=== PATIENT | female | born 1990 | race Caucasian/White ===

== ENCOUNTER 2018-11-06 16:10 | Inpatient (IN) | payer OTHER ==
[~2018-11-06] VITALS: Ht 165.1 cm; Wt 111.6 kg
[2018-11-06 16:34] LABS: BILIRUBIN,URINE NEGATIVE (NEG); CLARITY,URINE CLEAR; COLOR,URINE YELLOW; NITRITE,URINE NEGATIVE (NEG); PROTEIN,URINE NEGATIVE (NEG-TRACE); UROBILINOGEN,URINE 0.2 mg/dL (0.2 mg/dL)
[2018-11-06 16:40] LABS: RBC,URINE >40 /HPF (0-2)
[2018-11-06 16:41] LABS: BACTERIA,URINE 0 /HPF (0-FEW); SQUAMOUS EPITHELIAL CELL,UR MOD /LPF; WBC,URINE OCC /HPF (0-4)
[2018-11-06 16:45] LABS: BASO # 0.1 x10^3/uL (0.0-0.2); BASO % 1 % (0-3); EOS % 0 % (0-3); HEMATOCRIT 40.2 % (36.0-47.0); HEMOGLOBIN 13.3 g/dL (12.0-15.5); LYMPH # 2.1 x10^3/uL (1.0-4.8); LYMPH % 26 % (24-48); MEAN CORPUSCULAR HEMOGLOBIN 28 pg (25-35); MEAN CORPUSCULAR HGB CONC 33 g/dL (31-37); MEAN CORPUSCULAR VOLUME 83 fL (79-100); MONO # 1.1 x10^3/uL (0.0-1.1); MONO % 14 % (0-9); NEUT # 4.7 x10^3uL (1.8-7.7); NEUT % 59 % (31-73); PLATELET COUNT 204 x10^3/uL (140-400); RED BLOOD COUNT 4.82 x10^6/uL (3.50-5.40); RED CELL DISTRIBUTION WIDTH 14.4 % (11.5-14.5); WHITE BLOOD COUNT 8.1 x10^3/uL (4.0-11.0)
[2018-11-06 16:53] LABS: CALCIUM 9.2 mg/dL (8.5-10.1); CREATININE 0.7 mg/dL (0.6-1.0); GFR 99.6; POTASSIUM 3.6 mmol/L (3.5-5.1)
[2018-11-06 17:00] LABS: BARBITURATES NEG (NEG); BENZODIAZEPINES NEG (NEG); CANNABINOIDS POS (NEG); COCAINE NEG (NEG); METHADONE NEG (NEG); OPIATES NEG (NEG); PHENCYCLIDINE NEG (NEG)
[2018-11-06] MEDS ORDERED: MORPHINE SULFATE 2 MG/ML VIAL. IV ONE (17:00)
[2018-11-06] MEDS ORDERED: IV NORMAL SALINE 1000ML BAG 1,000 ML IV ONE ×2 (17:00→19:15)
[2018-11-06 17:01] LABS: AMPHETAMINE/METHAMPHETAMINE NEG (NEG)
[2018-11-06] MEDS ORDERED: METHOTREXATE SODIUM 50 MG/2 ML VIAL IM ONE (18:30)
--- NOTE | 2018-11-06 19:02 | PHYS DOC ---
Past Medical History Past Medical History: No Pertinent History (CIERRA DODD APRN) Past Surgical History: No Surgical History (CIERRA DODD APRN) Alcohol Use: None Drug Use: None Social History Narrative: FORMER MARIJ[employer]NA (CIERRA DODD APRN) Adult General Chief Complaint Chief Complaint: ABDOMINAL PAIN IN HPI HPI Patient is a 27 year old female 6 para 2 currently 3 weeks who presents to the ED today stating she was seen at an outpatient clinic at the [place], she states they did an outpatient ultrasound which showed she has an ectopic . She states she's had mild to moderate lower abdominal pain for 1 week with vaginal bleeding. She states the vaginal bleeding is light. Patient denies any nausea, vomiting. Patient states she is undergoing fertility treatments. She states she is currently on progesterone. (CIERRA DODD APRN) Review of Systems Review of Systems Constitutional: Denies fever or chills [] Eyes: Denies change in visual acuity, redness, or eye pain [] HENT: Denies nasal congestion or sore throat [] Respiratory: Denies cough or shortness of breath [] Cardiovascular: No additional information not addressed in HPI [] GI: Reports minimal pain, vaginal bleeding in , denies nausea, vomiting, bloody stools or diarrhea [] : Denies dysuria or hematuria [] Musculoskeletal: Denies back pain or joint pain [] Integument: Denies rash or skin lesions [] Neurologic: Denies headache, focal weakness or sensory changes [] All other systems were reviewed and found to be within normal limits, except as documented in this note. (CIERRA DODD APRN) Current Medications Current Medications Current Medications Medications (Trade) Dose Ordered Sig/Chaparrita Start Time Stop Time Status Last Admin Dose Admin Morphine Sulfate (Morphine Sulfate) 2 mg 1X ONCE 11/06/18 17:00 11/06/18 17:01 DC Sodium Chloride 1,000 ml @ 1,000 mls/hr 1X ONCE 11/06/18 17:00 11/06/18 17:59 DC 11/06/18 16:54 1,000 MLS/HR (TATO FLORENTINO DO) Allergies Allergies Allergies Coded Allergies Type Severity Reaction Last Updated Verified No Known Drug Allergies 11/06/18 No (TATO FLORENTINO DO) Physical Exam Physical Exam Constitutional: Well developed, well nourished, no acute distress, non-toxic appearance. [] HENT: Normocephalic, atraumatic, bilateral external ears normal, oropharynx moist, no oral exudates, nose normal. [] Eyes: PERRLA, EOMI, conjunctiva normal, no discharge. [] Neck: Normal range of motion, no tenderness, supple, no stridor. [] Cardiovascular:Heart rate regular rhythm, no murmur [] Lungs & Thorax: Bilateral breath sounds clear to auscultation [] Abdomen: Bowel sounds normal, soft, no tenderness, no masses, no pulsatile masses. [] Pelvic exam External pelvic appears normal, cervix not visualized due to blood in the vaginal vault, no CMT, no adnexal tenderness, mild amount of blood pressure vault. Skin: Warm, dry, no erythema, no rash. [] Back: No tenderness, no CVA tenderness. [] Extremities: No tenderness, no cyanosis, no clubbing, ROM intact, no edema. [] Neurologic: Alert and oriented X 3, normal motor function, normal sensory function, no focal deficits noted. [] Psychologic: Affect normal, judgement normal, mood normal. [] (CIERRA DODD APRN) Current Patient Data Vital Signs Vital Signs Date Time Temp Pulse Resp B/P (MAP) Pulse Ox O2 Delivery O2 Flow Rate FiO2 11/06/18 18:00 90 14 122/69 (86) 95 Room Air 11/06/18 16:21 98.3 98.3 (FLORENTINOTATO R DO) Lab Values Laboratory Tests Test 11/06/18 16:25 11/06/18 16:28 11/06/18 16:31 Urine Collection Type Unknown Urine Color Yellow Urine Clarity Clear Urine pH 6.0 Urine Specific [place] <=1.005 Urine Protein Negative mg/dL (NEG-TRACE) Urine Glucose (UA) Negative mg/dL (NEG) Urine Ketones (Stick) 15 mg/dL (NEG) Urine Blood Large (NEG) Urine Nitrite Negative (NEG) Urine Bilirubin Negative (NEG) Urine Urobilinogen Dipstick 0.2 mg/dL (0.2 mg/dL) Urine Leukocyte Esterase Trace (NEG) Urine RBC >40 /HPF (0-2) Urine WBC Occ /HPF (0-4) Urine Squamous Epithelial Cells Mod /LPF Urine Bacteria 0 /HPF (0-FEW) Urine Mucus Slight /LPF Urine Opiates Screen Neg (NEG) Urine Methadone Screen Neg (NEG) Urine Barbiturates Neg (NEG) Urine Phencyclidine Screen Neg (NEG) Urine Amphetamine/Methamphetamine Neg (NEG) Urine Benzodiazepines Screen Neg (NEG) Urine Cocaine Screen Neg (NEG) Urine Cannabinoids Screen Pos (NEG) Urine Ethyl Alcohol Neg (NEG) POC Urine HCG, Qualitative Hcg positive (Negative) White Blood Count 8.1 x10^3/uL (4.0-11.0) Red Blood Count 4.82 x10^6/uL (3.50-5.40) Hemoglobin 13.3 g/dL (12.0-15.5) Hematocrit 40.2 % (36.0-47.0) Mean Corpuscular Volume 83 fL (79-100) Mean Corpuscular Hemoglobin 28 pg (25-35) Mean Corpuscular Hemoglobin Concent 33 g/dL (31-37) Red Cell Distribution Width 14.4 % (11.5-14.5) Platelet Count 204 x10^3/uL (140-400) Neutrophils (%) (Auto) 59 % (31-73) Lymphocytes (%) (Auto) 26 % (24-48) Monocytes (%) (Auto) 14 % (0-9) H Eosinophils (%) (Auto) 0 % (0-3) Basophils (%) (Auto) 1 % (0-3) Neutrophils # (Auto) 4.7 x10^3uL (1.8-7.7) Lymphocytes # (Auto) 2.1 x10^3/uL (1.0-4.8) Monocytes # (Auto) 1.1 x10^3/uL (0.0-1.1) Eosinophils # (Auto) 0.0 x10^3/uL (0.0-0.7) Basophils # (Auto) 0.1 x10^3/uL (0.0-0.2) Maternal Serum HCG Beta Subunit 4243 mIU/mL (0-5) H Sodium Level 140 mmol/L (136-145) Potassium Level 3.6 mmol/L (3.5-5.1) Chloride Level 103 mmol/L (98-107) Carbon Dioxide Level 25 mmol/L (21-32) Anion Gap 12 (6-14) Blood Urea Nitrogen 4 mg/dL (7-20) L Creatinine 0.7 mg/dL (0.6-1.0) Estimated GFR (Cockcroft-Gault) 99.6 Glucose Level 87 mg/dL (70-99) Calcium Level 9.2 mg/dL (8.5-10.1) Ethyl Alcohol Level < 10 mg/dL (0-10) Laboratory Tests 11/06/18 16:31 Laboratory Tests 11/06/18 16:31 (TATO FLORENTINO DO) EKG EKG [] (CIERRA DODD APRN) Radiology/Procedures Radiology/Procedures [] (CIERRA DODD APRN) Course & Med Decision Making Course & Med Decision Making Pertinent Labs and Imaging studies reviewed. (See chart for details) This is a 27-year-old female patient 6 para 2 currently 3 weeks presenting to the ED today for ectopic diagnosed as an outpatient ultrasound. Images from patient's OB ultrasound noted for endometrial thickening of 1.4 cm with no evidence of IUP. Complex mass in the right pelvic adnexal raising the suspicion of an ectopic . Beta-hCG 4243 Hemoglobin and hematocrit are normal. Blood group O+. Spoke with Dr. Jean, he stated we can offer patient to choices, 1. Surgery which is a risk of losing the tube and ovary or she can do methotrexate. Patient opted for methotrexate. She was admitted under Dr. Keys. (CIERRA DODD APRN) Dragon Disclaimer Dragon Disclaimer This electronic medical record was generated, in whole or in part, using a voice recognition dictation system. (CIERRA DODD APRN) Departure Departure Impression: Primary Impression: Ectopic Disposition: ADMITTED INPATIENT Condition: STABLE Referrals: NO PCP (PCP) Attending Signature Attending Signature I have reviewed the PA/DISTRICT ADMINISTRATIVE ASSISTANT's note and plan of care. I was available for consultation as needed during the patient's visit in the emergency department. I agree with the clinical impression, plan, and disposition. (TATO FLORENTINO DO) Problem Qualifiers Primary Impression: Ectopic Location of ectopic : ovarian Intrauterine status: without intrauterine Laterality: left Qualified Codes: O00.202 - Left ovarian without intrauterine CIERRA DODD APRN November 06, 2018 19:02 TATO FLORENTINO DO November 07, 2018 11:54
[2018-11-06] MEDS ORDERED: ACETAMINOPHEN 325 MG TABLET. PO PRN (19:15)
[2018-11-06] MEDS ORDERED: ONDANSETRON PF 4 MG/2 ML VIAL. IV PRN (19:15)
[2018-11-06] MEDS ORDERED: MORPHINE SULFATE 4 MG/ML VIAL. IV PRN (19:15)
[2018-11-06] MEDS ORDERED: ACETAMINOPHEN 500 MG TABLET PO ONE (20:15)
[2018-11-06 20:45] VITALS: BP 129/67
[2018-11-06 23:04] VITALS: BP 105/67
[2018-11-07 05:11] LABS: BASO % 0 % (0-3); EOS # 0.1 x10^3/uL (0.0-0.7); EOS % 1 % (0-3); HEMATOCRIT 35.2 % (36.0-47.0); HEMOGLOBIN 11.7 g/dL (12.0-15.5); LYMPH # 2.5 x10^3/uL (1.0-4.8); LYMPH % 37 % (24-48); MEAN CORPUSCULAR HEMOGLOBIN 28 pg (25-35); MEAN CORPUSCULAR HGB CONC 33 g/dL (31-37); MEAN CORPUSCULAR VOLUME 84 fL (79-100); MONO # 0.8 x10^3/uL (0.0-1.1); MONO % 11 % (0-9); NEUT # 3.5 x10^3uL (1.8-7.7); NEUT % 51 % (31-73); PLATELET COUNT 176 x10^3/uL (140-400); RED BLOOD COUNT 4.18 x10^6/uL (3.50-5.40); RED CELL DISTRIBUTION WIDTH 14.5 % (11.5-14.5); WHITE BLOOD COUNT 6.9 x10^3/uL (4.0-11.0)
[2018-11-07 06:17] VITALS: BP 136/72
[2018-11-07 11:22] VITALS: BP 112/71
[2018-11-07] MEDS ORDERED: HYDROmorphone 2 MG/ML VIAL IV PRN ×2 (13:30→14:00)
[2018-11-07] MEDS ORDERED: fentaNYL PF VIAL 100 MCG/2 ML VIAL IV PRN ×4 (13:30→14:00)
[2018-11-07] MEDS ORDERED: PROCHLORPERAZINE 10 MG/2 ML VIAL. IV PRN ×2 (13:30→14:00)
[2018-11-07] MEDS ORDERED: ONDANSETRON PF 4 MG/2 ML VIAL. IV PRN ×2 (13:30→14:00)
[2018-11-07] MEDS ORDERED: LIDOCAINE 1% PF 2 ML VIAL. ID PRN ×2 (13:30→14:00)
[2018-11-07] MEDS ORDERED: MORPHINE SULFATE 2 MG/ML VIAL. IV PRN ×2 (13:30→14:00)
[2018-11-07] MEDS ORDERED: IV RINGERS,LACTATED 1000ML 1,000 ML IV SCH ×2 (13:55→14:00)
[2018-11-07] MEDS ORDERED: IV NORMAL SALINE 1000ML BAG 1,000 ML IV SCH (14:00)
--- NOTE | 2018-11-07 15:28 | RAD ---
Limited OB ultrasound dated 11/07/2018. Comparison made to 11/06/2018. CLINICAL INDICATION: Follow-up right adnexal mass. Possible ectopic . Elevated beta hCG. Recent methotrexate administration. FINDINGS: Transabdominal and transvaginal imaging was performed. Uterus measures 10.5 x 5.5 x 5.4 cm. No focal uterine mass. Endometrial complex measures 7 mm thickness. No gestational sac or pole within the endometrial canal. Again noted is a heterogeneous mass at the right adnexa measures approximately 6.0 x 5.3 x 3.5 cm versus 6.2 x 3.6 x 5.8 cm previously. This shows prominent peripheral color flow. Small amount of simple appearing free fluid in the posterior cul-de-sac. Left ovary measures 1.9 x 2.6 x 3.1 cm. No left adnexal mass. IMPRESSION: 1. No significant interval change in complex right adnexal mass, presumably a tubal ectopic. Continued follow-up imaging to ensure resolution. 2. Small amount of free fluid, nonspecific. 3. No evidence of gestational sac or pole within the endometrial canal. Electronically signed by: Hardeep Durham MD (11/07/2018 3:26 PM) [id number]
[2018-11-07 18:24] VITALS: BP 135/94
--- NOTE | 2018-11-08 09:00 | PDOC ---
Provider Note Provider Note Late Entry 11/07/18 Pt feeling much better this AM min vag bleeding discussed MTX vs Surgery pt reiterated not wanting surgery unless absolutely necessary Will repeat U/S and if no changes and pt continues to be pain free will DC home with instructions PATTI LESTER MD November 08, 2018 09:00
--- NOTE | 2018-11-08 09:04 | PDOC3 ---
OB DISCHARGE SUMMARY DATE OF ADMISSION: 11/07/18 DATE OF DISCHARGE: 11/08/18 REASON FOR ADMISSION: Observation/evaluation, Vaginal bleeding, Other (ectopic) PROCEDURES: Ultrasound PROCEDURES: None OPERATIONS: None PROBLEM LIST AT DISCHARGE Problems Medical Problems: (1) Ectopic Status: Acute DISCHARGE DIAGNOSIS: Others (eEctopic tx with MTX) DISCHARGE INFORMATION: Activity, Diet HOSPITAL COURSE Unremarkable CONDITION AT DISCHARGE Stable PATTI LESTER MD November 08, 2018 09:04
--- NOTE | 2018-11-08 10:08 | HP ---
ADMIT DATE: 11/06/2018 CHIEF COMPLAINT: Pelvic pain. HISTORY OF PRESENT ILLNESS: This is a very pleasant female, 27 years old, 6, para 2, felt she was approximately 3-4 weeks , presented to the ER after being seen in the outpatient clinic in the [place] and it was noted to have by ultrasound, probable ectopic . The patient stated that she was undergoing fertility treatments at the facility and was very concerned that this could be ectopic and surgery would be only indicated if necessary secondary to her ability to continue the fertility treatments. The patient is also on progesterone to help maintain the . REVIEW OF SYSTEMS: Per ER note. ALLERGIES: No known drug allergies. PHYSICAL EXAMINATION: HEENT: Head normocephalic, atraumatic. Pupils equal, round, reactive to light. HEART: Regular rate and rhythm. ABDOMEN: Soft, nontender to palpation. PELVIC: Showed no cervical motion tenderness per the ER, minimal blood in the vault. EXTREMITIES: No clubbing, cyanosis or edema. NEUROLOGIC: Intact. IMPRESSION AND PLAN: Complex mass in the right adnexa, suspicious for ectopic , the size was borderline and treating with methotrexate secondary to the patient's wishes. Attempt to resolve the via methotrexate will be prescribed. The patient will be admitted and follow up on pain and bleeding in the a.m. PATTI LESTER MD DR: LUIS CARLOS/gareth JOB#: [id number] / [id number]
== END 2018-11-07 18:30 | disposition home or self-care (01) | DRG 833 ==
LOC: ER 16:10 → 3 NORTH 18:28
PROVIDERS: ADMIT Specialist; ATTEND Specialist
DX: O00.90 Unspecified ectopic pregnancy without intrauterine pregnancy (principal); Z3A.01 Less than 8 weeks gestation of pregnancy
CPT/HCPCS: 36415; 76801; 76817; 80048; 80307; 81001; 81025; 84702; 85025; 86850; 86900; 86901; 87086; 96360; 96361; 96372; G0480; J7030; 99285-25

== ENCOUNTER 2018-11-07 21:30 | Inpatient (IN) | payer OTHER ==
[~2018-11-07] VITALS: Ht 172.7 cm; Wt 111.6 kg
[2018-11-07] MEDS ORDERED: fentaNYL PF VIAL 100 MCG/2 ML VIAL IV ONE ×2 (22:00→23:00)
[2018-11-07] MEDS ORDERED: IV NORMAL SALINE 1000ML BAG 1,000 ML IV ONE ×2 (22:00→23:00)
[2018-11-07] MEDS ORDERED: ONDANSETRON PF 4 MG/2 ML VIAL. IV ONE (22:00)
--- NOTE | 2018-11-07 22:21 | PHYS DOC ---
Past Medical History Past Medical History: No Pertinent History, Other Additional Past Medical Histor: ectopic preg (ALEXA WEBB) Past Surgical History: No Surgical History (ALEXA WEBB) Alcohol Use: None Drug Use: None (ALEXA WEBB) Adult General Chief Complaint Chief Complaint: ABDOMINAL PAIN HPI HPI Patient is a 27 year old F who was admitted on 11/06/[address] Keys for an ectopic and treated with Methotrexate. She was discharged home late this afternoon, 11/07/18. Pt states she went home and passed some blood clots and then started having increased pain in mid and lower R abdomen. She comes back to ER tearful and pale. Call placed immediately to Dr. Keys who would like us to repeat ultrasound to make sure she doesn't have a belly full of blood. If she does, we will call him back for her to go to surgery tonight. If ectopic is stable, we will admit to him with pain control, NPO after midnight and plans for surgery tomorrow. (ALEXA WEBB) Review of Systems Review of Systems Constitutional: Denies fever or chills Respiratory: Denies cough or shortness of breath Cardiovascular: Denies chest pain. GI: Denies nausea, vomiting, bloody stools or diarrhea. Reports low and RLQ abd pain. : Reports vaginal bleeding. Musculoskeletal: Denies back pain or joint pain Integument: Denies rash or skin lesions Neurologic: Denies headache, focal weakness or sensory changes All other systems were reviewed and found to be within normal limits, except as documented in this note. (ALEXA WEBB) Current Medications Current Medications Current Medications Medications (Trade) Dose Ordered Sig/Chaparrita Start Time Stop Time Status Last Admin Dose Admin Fentanyl Citrate (Fentanyl 2ml Vial) 25 mcg 1X ONCE 11/07/18 22:00 11/07/18 22:02 DC 11/07/18 22:21 25 MCG Ondansetron HCl (Zofran) 4 mg 1X ONCE 11/07/18 22:00 11/07/18 22:02 DC 11/07/18 22:21 4 MG Sodium Chloride 1,000 ml @ 1,000 mls/hr 1X ONCE 11/07/18 22:00 11/07/18 22:59 DC 11/07/18 22:21 1,000 MLS/HR (TATO FLORENTINO DO) Allergies Allergies Allergies Coded Allergies Type Severity Reaction Last Updated Verified No Known Drug Allergies 11/06/18 No (TATO FLORENTINO DO) Physical Exam Physical Exam Constitutional: Well developed, well nourished. Uncomfortable. Neck: Normal range of motion, no tenderness, supple, no stridor. Cardiovascular:Heart rate regular rhythm, no murmur Lungs & Thorax: Bilateral breath sounds clear to auscultation Abdomen: Bowel sounds normal, soft, no masses, no pulsatile masses. Suprapubic pain and R low pelvis pain. Skin: Warm, dry, no erythema, no rash. Back: No tenderness, no CVA tenderness. Extremities: No tenderness, no cyanosis, no clubbing, ROM intact, no edema. Neurologic: Alert and oriented X 3, normal motor function, normal sensory function, no focal deficits noted. Psychologic: Affect normal, judgement normal, mood normal. (ALEXA WEBB) Current Patient Data Vital Signs Vital Signs Date Time Temp Pulse Resp B/P (MAP) Pulse Ox O2 Delivery O2 Flow Rate FiO2 11/07/18 22:46 78 18 111/55 (73) 96 Room Air 11/07/18 21:45 98.0 98.0 (TATO FLORENTINO DO) Lab Values Laboratory Tests Test 11/07/18 22:15 White Blood Count 9.5 x10^3/uL (4.0-11.0) Red Blood Count 4.17 x10^6/uL (3.50-5.40) Hemoglobin 11.8 g/dL (12.0-15.5) L Hematocrit 35.1 % (36.0-47.0) L Mean Corpuscular Volume 84 fL (79-100) Mean Corpuscular Hemoglobin 28 pg (25-35) Mean Corpuscular Hemoglobin Concent 34 g/dL (31-37) Red Cell Distribution Width 14.2 % (11.5-14.5) Platelet Count 177 x10^3/uL (140-400) Neutrophils (%) (Auto) 71 % (31-73) Lymphocytes (%) (Auto) 20 % (24-48) L Monocytes (%) (Auto) 9 % (0-9) Eosinophils (%) (Auto) 0 % (0-3) Basophils (%) (Auto) 1 % (0-3) Neutrophils # (Auto) 6.7 x10^3uL (1.8-7.7) Lymphocytes # (Auto) 1.8 x10^3/uL (1.0-4.8) Monocytes # (Auto) 0.8 x10^3/uL (0.0-1.1) Eosinophils # (Auto) 0.0 x10^3/uL (0.0-0.7) Basophils # (Auto) 0.1 x10^3/uL (0.0-0.2) Prothrombin Time 13.1 SEC (11.7-14.0) Prothrombin Time INR 1.0 (0.8-1.1) PTT 27 SEC (24-38) Maternal Serum HCG Beta Subunit 3760 mIU/mL (0-5) H Sodium Level 140 mmol/L (136-145) Potassium Level 3.8 mmol/L (3.5-5.1) Chloride Level 105 mmol/L (98-107) Carbon Dioxide Level 23 mmol/L (21-32) Anion Gap 12 (6-14) Blood Urea Nitrogen 6 mg/dL (7-20) L Creatinine 0.7 mg/dL (0.6-1.0) Estimated GFR (Cockcroft-Gault) 99.6 BUN/Creatinine Ratio 9 (6-20) Glucose Level 103 mg/dL (70-99) H Calcium Level 8.8 mg/dL (8.5-10.1) Total Bilirubin 0.3 mg/dL (0.2-1.0) Aspartate Amino Transferase (AST) 15 U/L (15-37) Alanine Aminotransferase (ALT) 19 U/L (14-59) Alkaline Phosphatase 76 U/L (46-116) Total Protein 6.7 g/dL (6.4-8.2) Albumin 3.6 g/dL (3.4-5.0) Albumin/Globulin Ratio 1.2 (1.0-1.7) Laboratory Tests 11/07/18 22:15 Laboratory Tests 11/07/18 22:15 (TATO FLORENTINO DO) Lab Values Laboratory Tests Test 11/07/18 22:15 White Blood Count 9.5 x10^3/uL (4.0-11.0) Red Blood Count 4.17 x10^6/uL (3.50-5.40) Hemoglobin 11.8 g/dL (12.0-15.5) L Hematocrit 35.1 % (36.0-47.0) L Mean Corpuscular Volume 84 fL (79-100) Mean Corpuscular Hemoglobin 28 pg (25-35) Mean Corpuscular Hemoglobin Concent 34 g/dL (31-37) Red Cell Distribution Width 14.2 % (11.5-14.5) Platelet Count 177 x10^3/uL (140-400) Neutrophils (%) (Auto) 71 % (31-73) Lymphocytes (%) (Auto) 20 % (24-48) L Monocytes (%) (Auto) 9 % (0-9) Eosinophils (%) (Auto) 0 % (0-3) Basophils (%) (Auto) 1 % (0-3) Neutrophils # (Auto) 6.7 x10^3uL (1.8-7.7) Lymphocytes # (Auto) 1.8 x10^3/uL (1.0-4.8) Monocytes # (Auto) 0.8 x10^3/uL (0.0-1.1) Eosinophils # (Auto) 0.0 x10^3/uL (0.0-0.7) Basophils # (Auto) 0.1 x10^3/uL (0.0-0.2) Prothrombin Time 13.1 SEC (11.7-14.0) Prothrombin Time INR 1.0 (0.8-1.1) PTT 27 SEC (24-38) Maternal Serum HCG Beta Subunit 3760 mIU/mL (0-5) H Sodium Level 140 mmol/L (136-145) Potassium Level 3.8 mmol/L (3.5-5.1) Chloride Level 105 mmol/L (98-107) Carbon Dioxide Level 23 mmol/L (21-32) Anion Gap 12 (6-14) Blood Urea Nitrogen 6 mg/dL (7-20) L Creatinine 0.7 mg/dL (0.6-1.0) Estimated GFR (Cockcroft-Gault) 99.6 BUN/Creatinine Ratio 9 (6-20) Glucose Level 103 mg/dL (70-99) H Calcium Level 8.8 mg/dL (8.5-10.1) Total Bilirubin 0.3 mg/dL (0.2-1.0) Aspartate Amino Transferase (AST) 15 U/L (15-37) Alanine Aminotransferase (ALT) 19 U/L (14-59) Alkaline Phosphatase 76 U/L (46-116) Total Protein 6.7 g/dL (6.4-8.2) Albumin 3.6 g/dL (3.4-5.0) Albumin/Globulin Ratio 1.2 (1.0-1.7) Laboratory Tests 11/07/18 22:15 Laboratory Tests 11/07/18 22:15 (ALEXA WEBB) EKG EKG [] (ALEXA WEBB) Radiology/Procedures Radiology/Procedures US done and shows enlargement of R adnexal mass with small amt of free fluid. (ALEXA WEBB) Course & Med Decision Making Course & Med Decision Making Pertinent Labs and Imaging studies reviewed. (See chart for details) Dr. Keys notified of results, Pt is currently hemodynamically stable, pain is better controlled. Discussed with pt the plan of re-admission and NPO after midnight with plans to go to surgery in the morning. Pt in agreement with plan. (ALEXA WEBB) Dragon Disclaimer Dragon Disclaimer This electronic medical record was generated, in whole or in part, using a voice recognition dictation system. (ALEXA WEBB) Departure Departure Impression: Primary Impression: Ectopic Disposition: ADMITTED INPATIENT Admitting Physician: Other (Ludmila) (ALEXA WEBB) Condition: STABLE Referrals: NO PCP (PCP) Attending Signature Attending Signature I have reviewed the PA/FOREST FIRE PREVENTION MANAGER's note and plan of care. I was available for consul tation as needed during the patient's visit in the emergency department. I agree with the clinical impression, plan, and disposition. (TATO FLORENTINO DO) Problem Qualifiers Primary Impression: Ectopic Location of ectopic : unspecified location Intrauterine status: unspecified Qualified Codes: O00.90 - Unspecified ectopic without intrauterine ALEXA WEBB November 07, 2018 22:21 TATO FLORENTINO DO November 08, 2018 04:57
[2018-11-07 22:37] LABS: BASO # 0.1 x10^3/uL (0.0-0.2); BASO % 1 % (0-3); EOS % 0 % (0-3); HEMATOCRIT 35.1 % (36.0-47.0); HEMOGLOBIN 11.8 g/dL (12.0-15.5); LYMPH # 1.8 x10^3/uL (1.0-4.8); LYMPH % 20 % (24-48); MEAN CORPUSCULAR HEMOGLOBIN 28 pg (25-35); MEAN CORPUSCULAR HGB CONC 34 g/dL (31-37); MEAN CORPUSCULAR VOLUME 84 fL (79-100); MONO # 0.8 x10^3/uL (0.0-1.1); MONO % 9 % (0-9); NEUT # 6.7 x10^3uL (1.8-7.7); NEUT % 71 % (31-73); PLATELET COUNT 177 x10^3/uL (140-400); RED BLOOD COUNT 4.17 x10^6/uL (3.50-5.40); RED CELL DISTRIBUTION WIDTH 14.2 % (11.5-14.5); WHITE BLOOD COUNT 9.5 x10^3/uL (4.0-11.0)
[2018-11-07 22:43] LABS: CALCIUM 8.8 mg/dL (8.5-10.1); CREATININE 0.7 mg/dL (0.6-1.0); GFR 99.6; POTASSIUM 3.8 mmol/L (3.5-5.1)
[2018-11-07 22:47] LABS: PROTHROMBIN TIME PATIENT 13.1 SEC (11.7-14.0)
[2018-11-07 22:51] LABS: ALBUMIN 3.6 g/dL (3.4-5.0); ALBUMIN/GLOBULIN RATIO 1.2 (1.0-1.7); TOTAL BILIRUBIN 0.3 mg/dL (0.2-1.0); TOTAL PROTEIN 6.7 g/dL (6.4-8.2)
[2018-11-07] MEDS ORDERED: ONDANSETRON PF 4 MG/2 ML VIAL. IV PRN (23:00)
--- NOTE | 2018-11-07 23:15 | RAD ---
OB ultrasound less than 14 weeks 11/07/2018 CLINICAL HISTORY: Right adnexal mass suspected ectopic . Recent methotrexate administration. TECHNIQUE: Using the distended urinary bladder as a sonographic window, a real-time ultrasound examination of the pelvis was performed. Multiple images were obtained. FINDINGS: Comparison study is dated earlier today at 1430 hours. The uterus is normal in size. It measures 10.6 x 4.9 x 5.1 cm in longitudinal, transverse, and AP dimensions. The endometrial echo complex measures 5 mm in thickness which is within normal limits. No gestational sac is seen within the endometrial canal. Both ovaries are within normal limits in size and echogenicity. The right ovary measures 3.3 x 2.8 x 1.6 cm in size. Left ovary measures 3.6 x 2.4 x 1.6 cm in size. A complex right adnexal mass is seen which measures 8.2 x 7.4 x 4.8 cm in size. This has increased in size since the study from earlier today where it measured 5.3 x 6.0 x 3.5 cm in size. A small amount of free fluid is seen within the pelvis. IMPRESSION: Interval increase in size of the complex right adnexal mass as discussed above. Electronically signed by: Twin Mora MD (11/07/2018 11:11 PM) [facility]
[2018-11-08] VITALS (12 sets, daily range): BP systolic 103–128; BP diastolic 61–79
[2018-11-08] MEDS: fentaNYL PF VIAL 100 MCG/2 ML VIAL IV PRN ×6 (02:47→11:15)
[2018-11-08 06:55] LABS: BASO % 0 % (0-3); EOS % 1 % (0-3); HEMATOCRIT 31.3 % (36.0-47.0); HEMOGLOBIN 10.7 g/dL (12.0-15.5); LYMPH # 1.9 x10^3/uL (1.0-4.8); LYMPH % 24 % (24-48); MEAN CORPUSCULAR HEMOGLOBIN 29 pg (25-35); MEAN CORPUSCULAR HGB CONC 34 g/dL (31-37); MEAN CORPUSCULAR VOLUME 84 fL (79-100); MONO # 0.8 x10^3/uL (0.0-1.1); MONO % 10 % (0-9); NEUT # 5.3 x10^3uL (1.8-7.7); NEUT % 65 % (31-73); PLATELET COUNT 153 x10^3/uL (140-400); RED BLOOD COUNT 3.72 x10^6/uL (3.50-5.40); RED CELL DISTRIBUTION WIDTH 14.4 % (11.5-14.5); WHITE BLOOD COUNT 8.1 x10^3/uL (4.0-11.0)
[2018-11-08] MEDS ORDERED: BUPIVAC MPF-EPI 0.5%-1:200000 30 ML VIAL. ONE (07:57)
[2018-11-08] MEDS ORDERED: IV RINGERS,LACTATED 1000ML 1,000 ML IV SCH ×2 (07:57→08:41)
[2018-11-08] MEDS ORDERED: MORPHINE SULFATE 2 MG/ML VIAL. IV PRN (08:00)
[2018-11-08] MEDS ORDERED: LIDOCAINE 1% PF 2 ML VIAL. ID PRN ×2 (08:00→08:45)
[2018-11-08] MEDS ORDERED: fentaNYL PF VIAL 100 MCG/2 ML VIAL IV PRN ×3 (08:00→08:45)
[2018-11-08] MEDS ORDERED: ONDANSETRON PF 4 MG/2 ML VIAL. IV PRN (08:00)
[2018-11-08] MEDS ORDERED: PROCHLORPERAZINE 10 MG/2 ML VIAL. IV PRN (08:00)
[2018-11-08] MEDS ORDERED: HYDROmorphone 2 MG/ML VIAL IV PRN (08:00)
[2018-11-08] MEDS ORDERED: PROPOFOL 20 ML IV ONE (08:03)
[2018-11-08] MEDS ORDERED: DEXAMETHASONE SOD PHOS 4 MG/ML VIAL ONE (08:03)
[2018-11-08] MEDS ORDERED: ROCURONIUM 50 MG/5 ML VIAL. ONE (08:03)
[2018-11-08] MEDS ORDERED: LIDOCAINE 2% PF 5 ML VIAL. ONE (08:04)
[2018-11-08] MEDS ORDERED: MIDAZOLAM HCL/PF 2 MG/2 ML VIAL. ONE (08:09)
[2018-11-08] MEDS ORDERED: SUCCINYLCHOLINE 200 MG/10 ML VIAL. ONE (08:16)
[2018-11-08] MEDS ORDERED: MIDAZOLAM HCL/PF 2 MG/2 ML VIAL. IV PRN (08:45)
--- NOTE | 2018-11-08 09:08 | PDOC1 ---
OB - History Hx of Present Care: Good Care Ultrasounds: Abnormal US findings (R adnexal mass) Obstetrical Complications: Other (ectopic) Medical Complications: None, Other (Failed MTX) Past Family/Social History * Past Medical, Surgical, Family and Obstetric Histories reviewed from chart. Rubella: Immune RPR/VDRL: Negative HBsAG: Negative OB - Chief Complaint & HPI Date of Admission: Date of Admission: November 07, 2018 at 22:57 Chief Complaint/History : 6 Para: 2 EGA: 4 weeks Reason for admission: vaginal bleeding, other (Right ectopic) Admission Nurse Assessment Rev: Yes OB - Admission Exam Physical Exam Vitals: VS - Last 72 Hours, by Label Date Time Temp Pulse Resp B/P (MAP) Pulse Ox O2 Delivery O2 Flow Rate FiO2 11/08/18 08:38 97.6 81 16 120/62 98 Room Air 97.6 11/08/18 06:28 98.5 83 14 109/62 (78) 98 98.5 11/08/18 00:28 98.1 85 16 103/68 (80) 98 Room Air 98.1 11/07/18 23:16 74 18 108/59 (75) 97 Room Air 11/07/18 22:46 78 18 111/55 (73) 96 Room Air 11/07/18 22:27 80 20 129/70 (89) 99 Room Air 11/07/18 21:45 98.0 77 22 143/89 (107) 100 Room Air 98.0 Heart: Regular Rate Abdomen: Gravid Extremities: Normal Pulses, No tenderness or swelling Reflexes: Normal Assessment/Plan Assessment/Plan Ectopic Failed out patient MTX Dx laparoscopy with Salpingectomy PATTI LESTER MD November 08, 2018 09:08
[2018-11-08] MEDS ORDERED: FAMOTIDINE 20 MG/2 ML VIAL ONE (09:18)
[2018-11-08] MEDS ORDERED: SEVOFLURANE 61 TO 120 MINUTES. IH ONE (09:33)
[2018-11-08] MEDS ORDERED: KETOROLAC 30 MG/ML INJ FOR OR. INJ ONE (09:34)
[2018-11-08] MEDS ORDERED: fentaNYL PF VIAL 100 MCG/2 ML VIAL ONE (09:36)
[2018-11-08] MEDS ORDERED: GLYCOPYRROLATE 1 MG/5 ML VIAL. ONE (09:43)
[2018-11-08] MEDS ORDERED: NEOSTIGMINE METHYLSULFATE 5 MG/5 ML SYRINGE. ONE (09:43)
[2018-11-08] MEDS ORDERED: ceFAZolin SODIUM 1 GM VIAL ONE (10:16)
[2018-11-08] MEDS ORDERED: oxyCODONE/APAP 5/325 1 TAB TABLET PO PRN (12:00)
[2018-11-08] MEDS ORDERED: IBUPROFEN 400 MG TABLET. PO PRN (12:00)
--- NOTE | 2018-11-08 17:36 | NUR ---
Discharge instructions given to patient and spouse at this time no questions or concerns noted, to follow up with DR Keys in 1 week. waiting to eat dinner then to discharge, will monitor.
--- NOTE | 2018-11-08 18:46 | NUR ---
IV removed at this time. Patient tolerated well.
--- NOTE | 2018-11-12 10:09 | PATHOLOGY ---
[facility] Accession Number: [id number] . 01 Material submitted: . fallopian tube - RIGHT FALLOPIAN TUBE. Modifiers: right . 01 Clinical history: . None provided . 02 Diagnosis: Fallopian tube, right, laparoscopic salpingectomy: - Ectopic tubal . (SKM:libby; 11/11/2018) QMS/11/11/2018 . 02 Electronically signed: . Herber Radford MD, Pathologist NPI- [id number] . 01 Gross description: . The specimen is received in formalin, labeled "Covarrubias, Carmita, right fallopian tube", is a 7.5 cm long segment of fimbriated fallopian tube. The proximal to mid serosa has a linear staple measuring 5.0 cm in length. The staple line is removed and the underlying parenchyma is inked blue. The diameter ranges from 0.5 at the proximal and 2.0 in the midportion. There is a 4.0 x 1.7 x 1.2 cm intraluminal blood clot. No discrete products of conceptions are identified. Within the container there are multiple irregular fragments of dark brown hemorrhagic clots measuring 5.7 x 4.5 x 1.5 cm in aggregate. Dispatcher Radio tissue submitted as follows: A1. Proximal fallopian tube. A2-A4. Mid fallopian tube. A5-A6. Distal fallopian tube. A7. Fimbriated end. A8. Additional hemorrhagic clots. ([facility]; 11/10/2018) SHS/SHS . 02 Pathologist provided ICD-10: O00.101 . 02 CPT . 006682 Specimen Comment: A courtesy copy of this report has been sent to Specimen Comment: [phone]. Specimen Comment: Report sent to Performed at: 01 [facility] [address], [place], [place] [id number] MD Heber Genao MD Phone: [phone] Performed at: 02 [facility] [address], [place] [id number] MD Reno Schultz MD Phone: [phone]
--- NOTE | 2018-11-20 11:10 | PDOC ---
BRIEF OPERATIVE NOTE Date: November 08, 2018 Pre-Op Diagnosis Ectopic Post-Op Diagnosis R Ectopic Procedure Performed Dx Laparoscopy wit evacuation of hemoperioteum abd R salpingectomy Surgeon Ludmila Assistant Plant Controller None Anesthesia Type: General Blood Loss 100cc Specimens Obtained R tube Findings Dictated Complications None PATTI LESTER MD November 20, 2018 11:10
--- NOTE | 2018-11-20 11:17 | OP ---
DATE OF SURGERY: 11/08/2018 PREOPERATIVE DIAGNOSIS: Ectopic . POSTOPERATIVE DIAGNOSIS: Right ectopic . PROCEDURE: Diagnostic laparoscopy with right salpingectomy. SURGEON: Pancho Keys M.D. NEGATIVE TURNER: None. ANESTHESIA: General. ESTIMATED BLOOD LOSS: 100 mL. FLUIDS: Crystalloid. SPECIMENS: Right oviduct. FINDINGS: A 200 mL hemoperitoneum with a large right ectopic . COMPLICATIONS: None. CONDITION: Stable. DESCRIPTION OF PROCEDURE: After risks, benefits, indications, alternatives, and expectations discussed in detail with the patient and the patient's , the patient was brought to OR theater, [facility]. After adequate general anesthesia, the patient prepped and draped in the usual sterile manner. A uterine manipulator was placed transvaginally without any difficulty. Attention was then turned to the anterior abdominal wall. A small vertical infraumbilical incision was made sharply with a scalpel. Through this incision, via the Visiport, a 5 mm disposable trocar was placed. Pneumoperitoneum was created. A left 5 mm trocar was placed under direct visualization after infiltrating the area. Same procedure was carried out on the opposite side. A #12 disposable trocar was placed in this incision. Pneumoperitoneum was evacuated after the patient was placed in Trendelenburg. The left tube was pristine, normal fimbria. The right tube was edematous and cyanotic, enlarged from the ectopic . No evidence of rupture was appreciated. Using the Endo stapler, the tube was transected from its fimbriated end to cornu with two vascular load bites. Good hemostasis was assured. The right ovary appeared normal. The pelvic and abdomen were inspected. No other lesions were noted. Any loose clot and blood was also removed as much as possible. An EndoCatch bag was placed through the right trocar sleeve, retrieved the tube. The trocar sleeve and the tube were removed through the EndoCatch bag in the usual manner. The sleeve was replaced. Once again everything was inspected. Approximately 100 mL of fluid was left for additional adhesion prevention. Pneumoperitoneum was allowed to dissipate after all laparoscopic instruments and video camera was removed. All sleeves were removed. The right fascial incision was reapproximated with 0 Vicryl with a UR needle. Good reapproximation was appreciated. All skin incisions were reapproximated with 4-0 Monocryl in a subcuticular fashion. The umbilical incision was infiltrated with 0.5% Marcaine with epinephrine. The procedure was terminated. Sponge, needle and instrument counts were correct x 2 per nursing staff. The uterine manipulator was removed. The patient went to postop anesthesia recovery in stable condition. PANCHO KEYS MD DR: LUIS CARLOS/gareth JOB#: [id number] / [id number]
== END 2018-11-08 19:00 | disposition home or self-care (01) | DRG 817 ==
LOC: ER 21:30 → 3 NORTH 22:57
PROVIDERS: ADMIT Specialist; ATTEND Specialist
PROC: 0W9J4ZZ Drainage of Pelvic Cavity, Percutaneous Endoscopic Approach (ICD-10-PCS; 2018-11-08)
PROC: 0UB54ZZ Excision of Right Fallopian Tube, Percutaneous Endoscopic Approach (ICD-10-PCS; principal; 2018-11-08 09:00)
DX: O00.90 Unspecified ectopic pregnancy without intrauterine pregnancy (principal); K66.1 Hemoperitoneum; Z3A.01 Less than 8 weeks gestation of pregnancy
CPT/HCPCS: 36415; 76801; 80053; 84702; 85025; 85610; 85730; 86850; 86900; 86901; 88305; 96361; 96374; 96375; 96376; A7015; J0330; J0690; J0780; J1100; J1885; J2001; J2250; J2405; J2704; J2710; J3010; J3490; J7030; J7120; 99285-25